=== PATIENT | male | born 1960 | race Caucasian/White ===

== ENCOUNTER 2023-04-18 05:28 | Day surgery (SDC) | payer OTHER ==
[2023-04-17 08:57] VITALS: BMI 33.2
[2023-04-18] MEDS ORDERED: Lidocaine 1% PF 5 ML VIAL ONE (07:33)
[2023-04-18] MEDS ORDERED: PROPOFOL 40 ML ONE (07:33)
== END 2023-04-18 09:01 | disposition home or self-care (01) ==
LOC: CSHSDC 05:28
PROVIDERS: ATTEND Internal Medicine Gastroenterology
PROC: 0DBN8ZZ Excision of Sigmoid Colon, Via Natural or Artificial Opening Endoscopic (ICD-10-PCS; principal; 2023-04-18)
DX: D12.5 Benign neoplasm of sigmoid colon (principal); K64.8 Other hemorrhoids; K21.9 Gastro-esophageal reflux disease without esophagitis; I10 Essential (primary) hypertension; E11.9 Type 2 diabetes mellitus without complications; M10.9 Gout, unspecified; E78.5 Hyperlipidemia, unspecified; Z79.899 Other long term (current) drug therapy; Z79.4 Long term (current) use of insulin; Z79.82 Long term (current) use of aspirin; Z86.73 Personal history of transient ischemic attack (TIA), and cerebral infarction without residual deficits
CPT/HCPCS: 36416; 88305; J2704